=== PATIENT | male | born 1995 | race Caucasian/White ===

== ENCOUNTER 2017-02-12 19:26 | Emergency (ER) | payer BC ==
[~2017-02-12] VITALS: Ht 185.4 cm; Wt 79.4 kg
--- NOTE | 2017-02-12 19:26 | NUR ---
Patient to ER bed 5 to gown for evaluation. Side rails up. Report given to Susie HOLLAND.
[2017-02-12 19:30] VITALS: BP 127/74; PULSE 64; RESP 17; TEMP 98; O2SAT 100
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
--- NOTE | 2017-02-12 20:30 | NUR ---
MD Matthews at bedside examining pt
[2017-02-12] MEDS ORDERED: LIDOCAINE 1%, 20 ML MDV 20 ML ONE (20:55)
[2017-02-12] MEDS ORDERED: ceFAZolin SODIUM 1 GM VIAL IM ONE (21:30)
[2017-02-12 21:55] VITALS: BP 120/68; PULSE 62; RESP 18; TEMP 97.8; O2SAT 99
--- NOTE | 2017-02-12 21:55 | NUR ---
Patient given written and verbal discharge instructions and verbalizes understanding. ER MD discussed with patient the results and treatment provided. Patient in stable condition. ID arm band removed. No Rx given. Patient educated on pain management and to follow up with PMD. Pain Scale 0/10. Opportunity for questions provided and answered.
== END 2017-02-12 21:55 | disposition home or self-care (01) ==
LOC: SED 19:26
DX: S61.411A Laceration without foreign body of right hand, initial encounter (principal); S51.011A Laceration without foreign body of right elbow, initial encounter; V49.9XXA Car occupant (driver) (passenger) injured in unspecified traffic accident, initial encounter; Y93.89 Activity, other specified; Y99.8 Other external cause status; Y92.410 Unspecified street and highway as the place of occurrence of the external cause
CPT/HCPCS: 12002; 96372; 99284; J0690; J2001; 99283